=== PATIENT | female | born 1965 | race Caucasian/White ===

== ENCOUNTER → 2022-03-15 | Day surgery (SDC) | payer OTHER ==
[~2022-03-15] MED LIST: Ketamine 200 MG/20 ML MDV ONE; Metoclopramide 10 MG/2 ML SDV ONE; Midazolam 1 MG/ML 2 ML SDV ONE; Ondansetron 4 MG/2 ML SDV ONE; Phenylephrine 1% 10 MG/ML SDV ONE; Propofol 200 MG/20 ML SDV ONE; fentaNYL 50 MCG/ML SDV ONE
[2022-03-15] MEDS: Lactated Ringers 1,000 ML IV SCH (10:01)
[2022-03-15] MEDS: Ondansetron 4 MG/2 ML SDV IVPUSH STA (11:00)
== END ==
LOC: CC.SDS 09:37
PROVIDERS: ATTEND Family Medicine
DX: Z12.11 Encounter for screening for malignant neoplasm of colon (principal); D12.8 Benign neoplasm of rectum; E78.5 Hyperlipidemia, unspecified; G43.909 Migraine, unspecified, not intractable, without status migrainosus; E55.9 Vitamin D deficiency, unspecified; M81.0 Age-related osteoporosis without current pathological fracture; F41.9 Anxiety disorder, unspecified; I10 Essential (primary) hypertension; K21.9 Gastro-esophageal reflux disease without esophagitis; Z88.1 Allergy status to other antibiotic agents; Z79.899 Other long term (current) drug therapy; Z98.890 Other specified postprocedural states; Z87.891 Personal history of nicotine dependence
CPT/HCPCS: J2250; J2370; J2405; J2704; J2765; J3010; J7120